=== PATIENT | female | born 1970 | race Caucasian/White ===

== ENCOUNTER 2018-12-13 13:57 | Inpatient (IN) | payer MEDICARE, MEDICAID ==
[~2018-12-13] VITALS: Ht 172.7 cm; Wt 145.1 kg
--- NOTE | ~2018-12-13 | EMS ---
[facility] [address] [address] EMS Patient Care Report Name: VANI GOLD V Room: [facility]#: [id number] Admission: 12/13/18 Attend Phys: Discharge: Date of : 66 Report #: [id number] THIS REPORT FOR: //name// Report Transmitted: 12/13/2018 14:04 EMS Care Summary [facility]ident [id number] @ 12/13/2018 12:44 Incident Location [address] [place] [address] Patient VANI GOLD Female, 48 Years 1970 Patient Address [address] [place] [address] Patient History TIA,Chronic Pain, Patient Allergies Phenergan,Oxycodone, Patient Medications Penicillin, Morphine, Nexium, Chief Complaint Right sided weakness Disposition Transported No Lights/[place] Dispatch Reason Stroke/CVA Transported To [facility] Narrative Dispatch: [facility] was dispatched to [address] [place] [address] for a patient with stroke like symptoms. [facility] responded from headquarters and arrived on scene without incident. [facility] [address] [place] [address] EMS Patient Care Report Name: VANI GOLD V Room: [facility]#: [id number] Admission: 12/13/18 Attend Phys: Discharge: Date of : 66 Report #: [id number] Chief Complaint: Upon arrival to the scene, the patient, (Vani Gold) was found seated upright in her chair. Vani was complaining that her right arm felt heavy and the right side of her face felt numb. Vani stated that it started around 0100 in the morning and didn't call because she's "stubborn." History of Present Illness: Vani advised that she has had TIAs before, however has never had a CVA. She stated that the symptoms she was experiencing this time were different than the ones she had last time. Vani stated that she took an aspirin earlier in the morning, and had not taken any of her other medications. She states that she has been eating normally, and has not had any recent changes in diet, weight, or overall health until she started the symptoms she was experiencing. Assessment: Primary Assessment - Vani had a patent airway, her respiratory effort was not labored and she had clear and equal bilateral breath sounds. Vani had strong radial pulses and her skin was pink, warm, and dry. 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 No other disability was noted. Secondary Assessment - See assessment section for further information. Reason for Ambulance Transport: Vani required ambulance transport due to the significant findings consistent with a stroke. Treatments: Assessment was performed. [place] Stroke Scale and MEND Exam were performed. Vital signs were obtained. 3-lead and 12-Lead EKG were performed showing a sinus tachycardia without elevation or ectopy. IV access was attempted and successful in the left antecubital space with a 20 gauge IV. Blood draw was performed and flushed with 10 mL normal saline. It was secured with a saline lock. Summary of Call: Vani was noted to have significant findings consistent with a stroke. Vani was transferred to the cot with excessive assistance, and was secured to the cot. She was taken to the ambulance and loaded without incident. Non-emergency transport to the hospital began. During transport, no changes in the patient's condition were noted. Report was called to the hospital. Upon arrival to the facility, Vani was unloaded and taken inside without incident. She was transferred to the hospital bed. Report was given to nursing staff, signatures were obtained, [place] [address] EMS Patient Care Report Name: VANI GOLD [id number] Admission: 12/13/18 Attend Phys: Discharge: Date of : 66 Report #: [id number] Initial Vitals @13:29R: 18,BP: 172/118,Pain: 0/10,GCS: 15,Glucose: 176,SpO2: 99,Revised Trauma: 12,3-Lead ECG: Sinus Tachycardia Assessments @12:55MENTAL:Person Oriented,Time Oriented,Event Oriented,Place Oriented,SKIN:HEENT:Head/Face: Other,Eyes: Left Pupil: 3-mm,Eyes: Right Pupil: 3-mm,LUNG SOUNDS:ABDOMEN:PELVIS//GI:EXTREMITIES:Right Arm: Abnormal Sensation,Right Arm: Weakness,Capillary Refill: Right Upper: < 2 Sec,PULSE:Radial: 2+ Normal,NEURO:Weakness Right-Sided,Slurred Speech,@12:55MENTAL:Event Oriented,Time Oriented,Place Oriented,Person Oriented,SKIN:HEENT:Head/Face: No Abnormalities,LUNG SOUNDS:General: No Abnormalities,Left Upper: No Abnormalities,Right Upper: No Abnormalities,Left Lower: No Abnormalities,Right Lower: No Abnormalities,ABDOMEN:General: No Abnormalities,Left Upper: No Abnormalities,Right Upper: No Abnormalities,Left Lower: No Abnormalities,Right Lower: No Abnormalities,PELVIS//GI:EXTREMITIES:Left Arm: No Abnormalities,Right Arm: No Abnormalities,Left Leg: No Abnormalities,Right Leg: No Abnormalities,PULSE:NEURO: Impression Stroke / CVA Procedures @12:48ALS AssessmentResponse: UnchangedSucceeded@13:49 cc (20 ga) Site: Antecubital-LeftResponse: UnchangedSucceeded@12:493-Lead ECGResponse: UnchangedSucceeded@12:4812-Lead ECGResponse: UnchangedSucceeded@13:00Normal Saline (.9% NaCl) 10cc (20 ga) Site: Antecubital-LeftResponse: UnchangedSucceeded Timeline 12:41,Call Received 12:44,Dispatched 12:44,En Route 12:48,ALS Assessment,Response: UnchangedSucceeded, 12:48,12-Lead ECG,Response: UnchangedSucceeded, 12:49,3-Lead ECG,Response: UnchangedSucceeded, 12:53,On Scene 12:55,At Patient 13:00,Normal Saline (.9% NaCl) 10cc 20 ga Site: Antecubital-Left,Response: UnchangedSucceeded, 13:11,Depart Scene 13:29,BP: 172/118 M,PULSE: ,RR: 18 R,SPO2: 99 Ox,ETCO2: ,B,PAIN: 0,GCS: 15, 13:49, cc 20 ga Site: Antecubital-Left,Response: UnchangedSucceeded, [facility] [address] [place] [address] EMS Patient Care Report Name: VANI GOLD V Room: [facility] Salomon#: [id number] Admission: 12/13/18 Attend Phys: Discharge: Date of : 66 Report #: [id number] 13:55,At Destination 14:57,Call Closed Disclaimer v1.1 Copyright 2019 [employer] This EMS Care Summary contains data elements from the applicable legal record (which may be displayed differently). It is designed to provide pertinent information for the following purposes: continuity of care, clinical quality, and state data reporting. The complete legal record is available to ED staff and administrators of the receiving hospital in [facility]'s Patient Tracker. All data is provided "as is."
[~2018-12-13 13:57] MED LIST: B12INJ IM; BACTRIM DS TAB1 EACH PO; DOXYCYCLINE 10100 MG PO; LEXAPRO20 MG PO; MS CONTIN15 MG PO; ZYVOX600 MG PO
[2018-12-13 13:59] VITALS: BP 148/88
[2018-12-13 14:00] VITALS: BP 193/107
[2018-12-13] MEDS ORDERED: AUGMENTIN 875-1 EACH PO (14:12)
[2018-12-13] MEDS ORDERED: ZOFRAN4 MG PO (14:13)
[2018-12-13] MEDS ORDERED: ASPIRIN EC325 MG PO (14:13)
[2018-12-13] MEDS ORDERED: NEXIUM40 M2 PO (14:13)
[2018-12-13 14:20] LABS: ABSOLUTE BASOPHILS 0.1 thou/uL (0.0-0.2); ABSOLUTE EOSINOPHILS 0.2 thou/uL (0.0-0.7); ABSOLUTE MONOCYTES 0.6 thou/uL (0.0-1.2); ABSOLUTE NEUTROPHILS 6.8 thou/uL (1.6-8.1); BASOPHILS 1.2 %; EOSINOPHILS 2.6 %; HEMATOCRIT 47.6 % (37.0-47.0); HEMOGLOBIN 16.2 gm/dL (12.0-15.0); LYMPHOCYTES 20.3 %; MCH 31.2 pg (26.0-34.0); MCV 91.9 fL (80.0-100.0); MONOCYTES 6.4 %; MPV 7.4 fl. (7.2-11.1); NUCLEATED RBCS 0 /100WBC; PLATELET COUNT* 384 thou/uL (150-400); POLYS 69.5 %; RBC 5.18 mil/uL (4.20-5.00); RDW-CV 13.3 % (10.5-14.5); WBC 9.7 thou/uL (4.0-11.0)
[2018-12-13 14:33] LABS: CALCIUM 9.9 mg/dL (8.5-10.1)
[2018-12-13 14:38] LABS: ALBUMIN 3.5 g/dL (3.4-5.0); TOTAL BILIRUBIN 0.2 mg/dL (<0.1-1.0); TOTAL PROTEIN 7.9 g/dL (6.4-8.2)
[2018-12-13 16:46] VITALS: BP 141/78
[2018-12-13 17:19] LABS: HEMOGLOBIN 15.2 gm/dL (12.0-15.0)
--- NOTE | 2018-12-13 18:36 | NUR ---
PT ADMITTED TO FLOOR, HAS C/O HEADACHE AT THIS TIME. PHYSICIAN NOTIFIED REGARDING NEED FOR PAIN MEDICATIONS AND HOME MEDICATIONS TO BE RESTARTED. NO CALL BACK RECIEVED AT THIS TIME. VSS AT THIS TIME. WILL PASS ON TO HVAC LEAD REGARDING NO PHYSICIAN CONTACT AT THIS TIME. WILL CONTINUE TO MONITOR AND ASSESS
[2018-12-13 20:00] VITALS: BP 147/68
[2018-12-14 00:31] VITALS: BP 133/69
[2018-12-14 04:00] VITALS: BP 141/80
--- NOTE | 2018-12-14 04:47 | NUR ---
ASSUMED CARE OF PT AFTER REPORT AT 1930. PT A&OX4. VSS. PHYSICAL ASSESSMENT COMPLETED AND CHARTED. PT ON RA. PT TRACING SR PVC ON TELE. PT UPSTANDBY TO BSC. PT COMPLAINED OF NAUSEA, VOMITING & EPIGASTIC PAIN-DR MENDOZA MADE AWARE WITH NEW ORDERS. NIH CHARTED. PT REFUSED TO BE TURN EVEN AFTER EDUCATION- PT ABLE TO MOVE ON BED BY HERSELF. PT ABLE TO SLEEP WELL ON BED. CALL LIGHT WITHIN REACH.
[2018-12-14 05:26] LABS: CHOLESTEROL 238 mg/dL (<200); HDL CHOLESTEROL 34 mg/dL (>40); LDL CHOLESTEROL 176 mg/dL (<100); TRIGLYCERIDE 144 mg/dL (<150); VLDL 29 mg/dL (<40)
[2018-12-14 05:39] LABS: SERUM ASSESSMENT Clear
[2018-12-14 08:00] VITALS: BP 131/74
--- NOTE | 2018-12-14 10:14 | NUR ---
Pt is A&O. Resides at home with her and son. Independent with ADLs, can complete limited IADLs, son and assist as needed. Pt uses a cane for mobility in the home and a power wc in the community. Hx of [facility]. No hx of SNF. Goal is home at ma. Therapy evals pending. Following
--- NOTE | 2018-12-14 11:17 | NUR ---
ASSUMED PT CARE AT 0730, FULL ASSESMENT DONE CHARTED. PT A/O X4, ANXIOUS AND TEARFUL AT TIMES. SHE C/O NAUSEA THIS AM, MEDS GIVEN PER APR. PT UP WITH ASSIST, FALL PRECAUIONS IN PLACE, NIH DONE, REFER TO CHARTING. VSS, SR ON THE MONTIOR. PT WANTS TO GO HOME TODAY. WILL CONTINUE TO MONITOR.
[2018-12-14 12:17] VITALS: BP 135/70
[2018-12-14 14:03] LABS: AMP/METHAMP Negative (Negative); BARBITURATES Negative (Negative); BENZODIAZEPINES Negative (Negative); COCAINE Negative (Negative); METHADONE Negative (Negative); OPIATES POSITIVE (Negative); PCP Negative (Negative); THC Negative (Negative)
[2018-12-14] MEDS ORDERED: ZOFRAN4 MG PO (16:01)
[2018-12-14] MEDS ORDERED: XANAX 0.5 MG0.5 M1 PO (16:01)
[2018-12-14] MEDS ORDERED: LIPITOR40 MG PO (16:01)
[2018-12-14 16:04] VITALS: BP 135/70
[2018-12-14 16:28] VITALS: BP 115/73
--- NOTE | 2018-12-14 17:59 | EKG ---
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: : 1970 Requested By: Jermain Douglas Order Number: [id number] MD: Wade Aldana Measurements Intervals [place] Rate: 104 P: 60 TX: 161 QRS: -4 QRSD: 108 T: -1 QT: 347 QTc: 457 Interpretive Statements Sinus tachycardia Low voltage, precordial leads Compared to ECG 10/22/2015 19:28:31 Low QRS voltage now present Electronically Signed On 12-14-2018 17:59:04 CDT by Wade Aldana [email or web address] <ELECTRONICALLY SIGNED> By: Wade Aldana MD, [facility] 12/14/18 0746 1427 1427 Wade Aldana MD, [facility] /EPI
--- NOTE | 2018-12-14 18:31 | NUR ---
RECEIVED DISCHARGE ORDERS FOR TODAY. PT AND GIVEN DISCHARGE INSTRUCTIONS, NEW SCRIPTS CALLED TO PHARMACY. PT AND VERBALIZED UNDERSTANDING. PT LEFT WITH ALL BELONGINGS AT APPROX 1800
== END 2018-12-14 18:12 | disposition home health service (06) | DRG 69 ==
LOC: M.ERS 13:57 → M.TBA-ER 15:44 → M.2W 15:44
PROVIDERS: Emergency Medicine Emergency Medical Services; Family Medicine; ADMIT Internal Medicine
DX: G45.9 Transient cerebral ischemic attack, unspecified (principal); Z68.42 Body mass index [BMI] 45.0-49.9, adult; R47.1 Dysarthria and anarthria; H53.8 Other visual disturbances; R53.1 Weakness; R29.703 NIHSS score 3; E78.5 Hyperlipidemia, unspecified; E66.01 Morbid (severe) obesity due to excess calories; F41.9 Anxiety disorder, unspecified; Z53.29 Procedure and treatment not carried out because of patient's decision for other reasons; F40.240 Claustrophobia; R20.0 Anesthesia of skin; M25.852 Other specified joint disorders, left hip; Z86.73 Personal history of transient ischemic attack (TIA), and cerebral infarction without residual deficits; Z90.49 Acquired absence of other specified parts of digestive tract; Z79.899 Other long term (current) drug therapy; Z79.82 Long term (current) use of aspirin; Z88.8 Allergy status to other drugs, medicaments and biological substances; Z91.048 Other nonmedicinal substance allergy status; Z71.6 Tobacco abuse counseling

== ENCOUNTER 2019-01-27 11:24 | Inpatient (IN) | payer MEDICARE, MEDICAID ==
[~2019-01-27] VITALS: Ht 170.2 cm; Wt 146.5 kg
[~2019-01-27 11:24] MED LIST changes: +ASPIRIN EC81 M1 PO; +AUGMENTIN 875-1 EACH PO; +LIPITOR40 MG PO; +NEXIUM40 M2 PO; +XANAX 0.5 MG0.5 M1 PO; +ZOFRAN4 MG PO
[2019-01-27 11:34] VITALS: BP 170/95
[2019-01-27] MEDS ORDERED: PENICILLIN VK500 MG PO (11:42)
[2019-01-27] MEDS ORDERED: LEXAPRO 10 MG T10 MG PO (11:43)
[2019-01-27 12:02] LABS: ABSOLUTE EOSINOPHILS 0.5 thou/uL (0.0-0.7); ABSOLUTE LYMPHOCYTES 2.2 thou/uL (0.8-5.3); ABSOLUTE MONOCYTES 0.5 thou/uL (0.0-1.2); BASOPHILS 0.2 %; EOSINOPHILS 5.2 %; HEMATOCRIT 45.4 % (37.0-47.0); HEMOGLOBIN 15.3 gm/dL (12.0-15.0); LYMPHOCYTES 23.9 %; MCH 31.3 pg (26.0-34.0); MCHC 33.8 g/dL (28.0-37.0); MCV 92.7 fL (80.0-100.0); MONOCYTES 5.3 %; MPV 7.6 fl. (7.2-11.1); NUCLEATED RBCS 0 /100WBC; PLATELET COUNT* 411 thou/uL (150-400); POLYS 65.4 %; RDW-CV 13.6 % (10.5-14.5); WBC 9.2 thou/uL (4.0-11.0)
[2019-01-27 12:14] LABS: PROTIME 10.1 Seconds (9.20-11.50)
[2019-01-27 12:16] LABS: ALBUMIN 3.6 g/dL (3.4-5.0); CALCIUM 9.4 mg/dL (8.5-10.1); CREATININE 0.8 mg/dL (0.6-1.3); POTASSIUM 4.1 mmol/L (3.5-5.1); TOTAL BILIRUBIN 0.3 mg/dL (<0.1-1.0)
[2019-01-27 14:32] VITALS: BP 136/89
--- NOTE | 2019-01-27 14:56 | EKG ---
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1970 Requested By: Jermain Douglas Order Number: [id number] MD: Wade Aldana Measurements Intervals [place] Rate: 93 P: 70 [place]: 160 QRS: 37 QRSD: 107 T: 31 QT: 363 QTc: 452 Interpretive Statements Sinus rhythm Abnormal R-wave progression, early transition Baseline wander in lead(s) II,aVR,aVF,V1,V2,V3,V4,V5,V6 Compared to ECG 12/13/2018 14:27:22 Sinus tachycardia no longer present Electronically Signed On 01-27-2019 14:56:26 CHIEF UNDERWRITER by Wade Aldana [email or web address] <ELECTRONICALLY SIGNED> By: Wade Aldana MD, FACC 01/27/19 1456 1138 1138 Wade Aldana MD, FACC /EPI
--- NOTE | 2019-01-27 16:23 | NUR ---
PATINET RESTING IN BED. UP WITH ASSIST X1 AND CANE. MINOR RIGHT SIDE WEAKNESS. PATINET AOX4. VITAL SIGNS STABLE. MRI HEAD WITH CONTRAST ORDERED. UA, ECHO, AND CAROTID US ORDERED. VITAL SIGNS STABLE. HOURLY ROUNDING COMPLETD FOR PATINET SAFETY.
[2019-01-27 20:00] VITALS: BP 120/75
[2019-01-28 00:38] VITALS: BP 115/53
--- NOTE | 2019-01-28 04:09 | NUR ---
PT ALERT ORIENTED. NIHSS 1. AMBULATES WITH CANE AND ASSIST OF ONE. TELEMETRY SHOWS SR. TYLENOL GIVEN HS FOR BILLS PAIN. WCTM.
[2019-01-28 04:57] VITALS: BP 115/70
[2019-01-28 07:55] VITALS: BP 121/61
[2019-01-28 12:26] VITALS: BP 126/59
--- NOTE | 2019-01-28 13:46 | NUR ---
Pt is A&O. Known to this CM from previous hospital stay. Pt uses a cane for mobility, but has a scooter for community distances and also a walker. Hx of [facility], as of last week. No hx of SNF. Goal is home at [place], Pt [place] not want HH at [place].
[2019-01-28 14:19] LABS: URINE BILIRUBIN NEGATIVE (Negative); URINE BLOOD 2+ (Negative); URINE CLARITY CLEAR; URINE COLOR YELLOW; URINE GLUCOSE-RANDOM NEGATIVE (Negative); URINE KETONES NEGATIVE (Negative); URINE NITRITE-REFLEX NEGATIVE (Negative); URINE PROTEIN NEGATIVE (Negative); URINE UROBILINOGEN 0.2 E.U./dl (0.2-1.0)
[2019-01-28 14:22] LABS: URINE LEUKOCYTES-REFLEX 2+ (Negative)
[2019-01-28] MEDS ORDERED: FOLIC ACID1 MG PO (14:24)
[2019-01-28] MEDS ORDERED: B-12 COMPL1000 MCG/1 SUBQ (14:28)
[2019-01-28 14:29] LABS: SQUAMOUS >10 Many /LPF (0-3)
[2019-01-28] MEDS ORDERED: VASCEPA1 GM PO (14:30)
[2019-01-28 14:31] LABS: URINE WBC-REFLEX 6-15 Few /HPF (0-5)
[2019-01-28 14:32] VITALS: BP 126/59
[2019-01-28 14:32] LABS: CASTS None Seen /LPF (None Seen); MUCUS 0-3 Light strn/LPF (None Seen); URINE RBC 3-10 Few /HPF (0-2)
[2019-01-28 14:33] LABS: CRYSTALS None Seen /LPF (None Seen)
--- NOTE | 2019-01-28 14:48 | 2DMMODE ---
[place] [address] 2 D/M-MODE ECHOCARDIOGRAM Name: RACHEL GOLD V Room: [address] IN [facility]#: [id number] Admission: 01/27/19 Attend Phys: Kenrick Ingram Discharge: Date of : 66 Date of Service: 01/28/19 1448 Report #: [id number] THIS REPORT FOR: //name// APPROVED REPORT Study performed: 01/28/2019 09:52:46 EXAM: Comprehensive 2D, Doppler, and color-flow Echocardiogram Patient Location: In-Patient Room #: [facility] Status: routine BSA: 2.40 HR: 64 bpm BP: 121/61 mmHg Rhythm: NSR Other Information Study Quality: Good Indications CVA/TIA Echo Enhancing Agent Indication: Rule out Shunt Agent(s) / Amount(s) Used: Agitated Saline 10 cc 2D Dimensions IVSd: 12.88 (7-11mm) LVOT Diam: 24.67 (18-24mm) LVDd: 55.15 mm PWd: 9.67 (7-11mm) Ascending Ao: 34.38 (22-36mm) LVDs: 32.48 (25-40mm) Aortic Root: 34.36 mm Volumes Left Atrial Volume (Systole) LA ESV Index: 27.40 mL/m2 Aortic Valve AoV Peak Tim.: 1.15 m/s AO Peak Gr.: 5.28 mmHg LVOT Max P.69 mmHg AO Mean Gr.: 3.00 mmHg LVOT Mean P.83 mmHg LVOT Max V: 0.65 m/s AO V2 VTI: 24.82 cm LVOT Mean V: 0.41 m/s VARUN (VTI): 2.90 cm2 LVOT V1 VTI: 15.05 [place] [address] 2 D/M-MODE ECHOCARDIOGRAM Name: RACHEL GOLD V Room: [address] IN [facility].#: [id number] Admission: 01/27/19 Attend Phys: Kenrick Ingram Discharge: Date of : 66 Date of Service: 01/28/19 1448 Report #: [id number] Mitral Valve E/A Ratio: 1.09 MV Decel. Time: 221.70 ms MV E Max Tim.: 0.74 m/s MV PHT: 64.29 ms MVA (PHT): 3.42 cm2 TDI E/Lateral E': 5.69 E/Medial E': 6.73 Medial E' Tim.: 0.11 m/s Lateral E' Tim.: 0.13 m/s Pulmonary Valve PV Peak Tim.: 0.62 m/s PV Peak Gr.: 1.55 mmHg Left Ventricle The left ventricle is normal size. There is normal LV segmental wall motion. There is normal left ventricular wall thickness. Left ventricular systolic function is normal. LVEF is 55-60%. The left ventricular diastolic function is normal. Right Ventricle The right ventricle is normal size. The right ventricular systolic function is normal. Atria The left atrium size is normal. Interatrial septum is intact without evidence of ASD or PFO. The right atrium size is normal. Aortic Valve The aortic valve is normal in structure. No aortic regurgitation is present. There is no aortic valvular stenosis. Mitral Valve The mitral valve is normal in structure. There is no mitral valve regurgitation noted. No evidence of mitral valve stenosis. Tricuspid Valve The tricuspid valve is normal in structure. Unable to assess PA pressure. Trace tricuspid regurgitation. Pulmonic Valve The pulmonary valve is normal in structure. There is no pulmonic valvular regurgitation[place] [address] 2 D/M-MODE ECHOCARDIOGRAM Name: RACHEL GOLD V Room: [address] IN [facility]#: [id number] Admission: 01/27/19 Attend Phys: Kenrick Ingram Discharge: Date of : 66 Date of Service: 01/28/19 1448 Report #: [id number] The aortic root is normal in size. IVC is normal in size and collapses >50% with inspiration. Pericardium There is no pericardial effusion. <Conclusion> The left ventricle is normal size. There is normal left ventricular wall thickness. Left ventricular systolic function is normal. LVEF is 55-60%. The left ventricular diastolic function is normal. Interatrial septum is intact without evidence of ASD or PFO. Trace tricuspid regurgitation. IVC is normal in size and collapses >50% with inspiration. <ELECTRONICALLY SIGNED> By: Pascual Gramajo MD, FACC 01/28/19 1448 1448 1448 Pascual Gramajo MD, FACC /INF
--- NOTE | 2019-01-28 15:06 | NUR ---
ORDER RECEIVED TO DISCHARGE PATIENT H OME TO SELF CARE. MED REC, MEDICATION EDUCATION, STROKE EDUCATION AND NEED FOR FOLLOW UP WITH NEURO AND PRIMARY CARE PROVIDER COVERED AND STATED UNDERSTOOD BY PATIENT. IV AND TELEMRTRY PACK REOMVED. DISCHARGE TIME OF 15:07
== END 2019-01-28 14:39 | disposition home or self-care (01) | DRG 641 ==
LOC: M.ERS 11:24 → M.2W 13:15 → M.TBA-ER 13:15 → M.2W 15:07
PROVIDERS: Emergency Medicine Emergency Medical Services; ADMIT Internal Medicine
DX: E53.8 Deficiency of other specified B group vitamins (principal); F11.20 Opioid dependence, uncomplicated; F17.210 Nicotine dependence, cigarettes, uncomplicated; I10 Essential (primary) hypertension; E78.5 Hyperlipidemia, unspecified; E11.9 Type 2 diabetes mellitus without complications; Z90.49 Acquired absence of other specified parts of digestive tract; Z86.73 Personal history of transient ischemic attack (TIA), and cerebral infarction without residual deficits; Z79.82 Long term (current) use of aspirin; Z79.899 Other long term (current) drug therapy; Z88.1 Allergy status to other antibiotic agents; Z91.09 Other allergy status, other than to drugs and biological substances

== ENCOUNTER 2021-03-25 03:07 | Emergency (ER) | payer MEDICARE, MEDICAID ==
[~2021-03-25] VITALS: Ht 170.2 cm; Wt 131.5 kg
--- NOTE | ~2021-03-25 | EMS ---
[place] [address] EMS Patient Care Report Name: RACHEL GOLD [id number] Admission: 03/25/21 Attend Phys: Discharge: 03/25/21 Date of : [birth year] Report #: [id number] THIS REPORT FOR: //name// Report Transmitted: 03/28/2021 13:40 EMS Care Summary [facility] [id number] @ 03/25/2021 01:36 [place] [address] Patient RACHEL GOLD Female, 51 Years 1970 [place] [address] Patient History Hypertension (HTN),Stroke/CVA,Anxiety,Chronic Pain,Kidney Stone, Patient Allergies Phenergan,Vicodin,Oxycodone, Patient Medications Lexapro, Ventolin, Penicillin, Zofran, Chief Complaint I've had chest pain for hours Disposition Transported No Lights/[place] Dispatch Reason Chest Pain (Non-Traumatic) Transported To [facility] Narrative Med 1 requested to [place] by first responders on the scene requesting an ambulance. Med 1 copied the call and began our response to the scene. We arrived on scene without incident. We were met at the ambulance by Aston Malhotra who advised us the patient is family to them and requested a vitals check. The [address] [address] EMS Patient Care Report Name: RACHEL GOLD V Room: [facility] Salomon#: [id number] Admission: 03/25/21 Attend Phys: Discharge: 03/25/21 Date of : 66 Report #: [id number] patient complained of chest pain and wanted to go by ambulance instead of POV. Inside sitting up right on the couch we located a female patient who appeared to be in no distress. She's alert with a GCS of 15. Patient advised she was sitting down at 2000 when she began having chest pain in the center of her chest in which was heavy. She took 325 ASA with no change in pain. She then tried to eat dinner and rest some which didn't help. The pain subsided on its own with no further interventions. She then began having an aching pain in the center of her chest around 2200. She was not able to get comfortable enough to sleep. She contacted her son who is on [employer] to come take her vitals. She requested her son to have an ambulance take her to the ER for evaluation. Vitals were obtained at her side. 12 lead ECG obtained. Patient was able to stand then to turn and sit on the cot. She was covered and secured. She was taken to the ambulance and placed inside. Vitals were monitored. Repeat ECG obtained. IV access obtained with zofran given for nausea. Patient requested to go to [place] for evaluation. We began our non emergent transport to the ER. Patient promptly fell asleep on the cot as we began our transport. She appeared to be in no distress as she slept on the cot. Patient denied that she takes any medication to assist her in sleeping at night. She advised that she advised due to the time of night is why she couldn't stay awake. Vitals were monitored. No acute changes were with the patients condition. Report was called in to the ER via [employer] radio. She advised that her pain had subsided again. Her nausea improved with the zofran. Upon arrival to the ER patient was taken inside and to the ER bed where she was moved. Report was given to the nurse taking over care. Signatures were obtained and care was transferred. Initial Vitals @02:10P: 87,SpO2: 97, @02:40P: 81,BP: 104/66,SpO2: 93, @02:45P: 79,SpO2: 96, @02:54P: 80,BP: 131/96,SpO2: 95, @02:28P: 81,BP: 73/46,SpO2: 94, @02:03P: 87,BP: 151/54,SpO2: 96, @02:25P: 88,BP: 71/46,SpO2: 92, @02:20P: 89,SpO2: 96, @02:15P: 90,BP: 66/46,SpO2: 96, @02:35P: 85,SpO2: 94, @03:00P: 78,SpO2: 94, @02:23P: 90,R: 18,BP: 118/70,Pain: 4/10,GCS: 15,Glucose: 110,SpO2: 99,Revised Trauma: 12,ND Suspected: false @02:46P: 76,R: 18,BP: 106/60,Pain: 4/10,GCS: 15,SpO2: 99,Revised Trauma: 12, @02:56P: 80,R: 18,BP: 130/90,Pain: 0/10,GCS: 15,SpO2: 99,Revised Trauma: 12, [address] [address] EMS Patient Care Report Name: RACHEL GOLD V Room: [facility]#: [id number] Admission: 03/25/21 Attend Phys: Discharge: 03/25/21 Date of : 66 Report #: [id number] Assessments @02:28MENTAL:Person Oriented,Event Oriented,Time Oriented,Place Oriented,SKIN:HEENT:LUNG SOUNDS:General: Nausea,ABDOMEN:General: Nausea,PELVIS//GI:EXTREMITIES:Right Arm: Weakness,PULSE:NEURO:@02:46MENTAL:Place Oriented,Person Oriented,Time Oriented,Event Oriented,SKIN:HEENT:LUNG SOUNDS:ABDOMEN:PELVIS//GI:EXTREMITIES:Right Arm: Weakness,PULSE:NEURO: Impression Chest Pain / Discomfort Procedures @02:24 ALS Assessment Response: UnchangedSucceeded @02:41 IV Therapy - Saline Lock 10cc (20 ga) Site: Antecubital-Right Response: UnchangedSucceeded @02:42 Zofran - 4 Milligrams (mg) - Intravenous (IV) Response: Improved @02:03 12-Lead ECG @02:54 12-Lead ECG Timeline 01:36,Call Received 01:36,Dispatched 01:38,En Route 01:52,On Scene 01:53,At Patient 02:03,12-Lead ECG, 02:03,BP: 151/54 M,PULSE: 87,RR: R,SPO2: 96 Ox,ETCO2: ,BG: ,PAIN: ,GCS: , 02:10,BP: / M,PULSE: 87,RR: R,SPO2: 97 Ox,ETCO2: ,BG: ,PAIN: ,GCS: , 02:11,Depart Scene 02:15,BP: 66/46 M,PULSE: 90,RR: R,SPO2: 96 Ox,ETCO2: ,BG: ,PAIN: ,GCS: , 02:20,BP: / M,PULSE: 89,RR: R,SPO2: 96 Ox,ETCO2: ,BG: ,PAIN: ,GCS: , 02:23,BP: 118/70 M,PULSE: 90,RR: 18 R,SPO2: 99 Ox,ETCO2: ,B,PAIN: 4,GCS: 15, 02:24,ALS Assessment,Response: UnchangedSucceeded, 02:25,BP: 71/46 M,PULSE: 88,RR: R,SPO2: 92 Ox,ETCO2: ,BG: ,PAIN: ,GCS: , 02:28,BP: 73/46 M,PULSE: 81,RR: R,SPO2: 94 Ox,ETCO2: ,BG: ,PAIN: ,GCS: , 02:35,BP: / M,PULSE: 85,RR: R,SPO2: 94 Ox,ETCO2: ,BG: ,PAIN: ,GCS: , 02:40,BP: 104/66 M,PULSE: 81,RR: R,SPO2: 93 Ox,ETCO2: ,BG: ,PAIN: ,GCS: , 02:41,IV Therapy - Saline Lock 10cc 20 ga Site: Antecubital-Right,Response: UnchangedSucceeded, 02:42,Zofran - 4 Milligrams (mg) - Intravenous (IV),Response: Improved 02:45,BP: / M,PULSE: 79,RR: R,SPO2: 96 Ox,ETCO2: ,BG: ,PAIN: ,GCS: , 02:46,BP: 106/60 M,PULSE: 76,RR: 18 R,SPO2: 99 Ox,ETCO2: ,BG: ,PAIN: 4,GCS: 15, 02:54,12-Lead ECG, [address] [address] EMS Patient Care Report Name: RACHEL GOLD V Room: [facility]#: [id number] Admission: 03/25/21 Attend Phys: Discharge: 03/25/21 Date of : 66 Report #: [id number] 02:54,BP: 131/96 M,PULSE: 80,RR: R,SPO2: 95 Ox,ETCO2: ,BG: ,PAIN: ,GCS: , 02:56,BP: 130/90 M,PULSE: 80,RR: 18 R,SPO2: 99 Ox,ETCO2: ,BG: ,PAIN: 0,GCS: 15, 03:00,BP: / M,PULSE: 78,RR: R,SPO2: 94 Ox,ETCO2: ,BG: ,PAIN: ,GCS: , 03:01,At Destination 03:58,Call Closed Disclaimer v1.1 Copyright 2021 [employer] This EMS Care Summary contains data elements from the applicable legal record (which may be displayed differently). It is designed to provide pertinent information for the following purposes: continuity of care, clinical quality, and state data reporting. The complete legal record is available to ED staff and administrators of the receiving hospital in [employer] Patient Tracker. All data is provided "as is."
[~2021-03-25 03:07] MED LIST changes: +B-12 COMPL1000 MCG/1 SUBQ; +FOLIC ACID1 MG PO; +LEXAPRO 10 MG T10 MG PO; +PENICILLIN VK500 MG PO; +VASCEPA1 GM PO
[2021-03-25] MEDS ORDERED: VENTOLIN HFA INH8 GM INH (03:12)
[2021-03-25] MEDS ORDERED: ASA81BEC PO (03:12)
[2021-03-25] MEDS ORDERED: PENICILLIN VK500 MG PO (03:13)
[2021-03-25] MEDS ORDERED: TRAMADOL 50 MG50 MG PO (03:14)
[2021-03-25 03:51] LABS: ABSOLUTE BASOPHILS 0.1 thou/uL (0.0-0.2); ABSOLUTE EOSINOPHILS 0.3 thou/uL (0.0-0.7); ABSOLUTE MONOCYTES 0.6 thou/uL (0.0-1.2); ABSOLUTE NEUTROPHILS 6.6 thou/uL (1.6-8.1); BASOPHILS 1.2 %; EOSINOPHILS 2.9 %; HEMATOCRIT 45.1 % (37.0-47.0); HEMOGLOBIN 15.1 gm/dL (12.0-15.0); LYMPHOCYTES 20.9 %; MCH 31.7 pg (26.0-34.0); MCHC 33.5 g/dL (28.0-37.0); MCV 94.7 fL (80.0-100.0); MONOCYTES 6.4 %; MPV 7.3 fl. (7.2-11.1); NUCLEATED RBCS 0 /100WBC; PLATELET COUNT* 362 thou/uL (150-400); POLYS 68.6 %; RBC 4.77 mil/uL (4.20-5.00); RDW-CV 13.5 % (10.5-14.5); WBC 9.6 thou/uL (4.0-11.0)
[2021-03-25 03:57] LABS: URINE BILIRUBIN NEGATIVE (Negative); URINE BLOOD TRACE (Negative); URINE CLARITY CLEAR; URINE COLOR STRAW; URINE GLUCOSE-RANDOM NEGATIVE (Negative); URINE KETONES NEGATIVE (Negative); URINE LEUKOCYTES-REFLEX NEGATIVE (Negative); URINE NITRITE-REFLEX NEGATIVE (Negative); URINE PROTEIN NEGATIVE (Negative); URINE SPECIFIC GRAVITY <= 1.005 (1.005-1.030); URINE UROBILINOGEN 0.2 E.U./dl (0.2-1.0)
[2021-03-25 04:05] LABS: AMP/METHAMP Negative (Negative); BARBITURATES Negative (Negative); BENZODIAZEPINES Negative (Negative); COCAINE Negative (Negative); METHADONE Negative (Negative); OPIATES Negative (Negative); PCP Negative (Negative); THC Negative (Negative)
[2021-03-25 04:08] LABS: CALCIUM 8.9 mg/dL (8.5-10.1); CREATININE 0.8 mg/dL (0.6-1.3); POTASSIUM 4.2 mmol/L (3.5-5.1)
[2021-03-25 04:13] LABS: ALBUMIN 3.3 g/dL (3.4-5.0); TOTAL BILIRUBIN 0.3 mg/dL (<0.1-1.0); TOTAL PROTEIN 7.4 g/dL (6.4-8.2)
[2021-03-25] MEDS ORDERED: CARAFATE1 GM PO (06:14)
[2021-03-25] MEDS ORDERED: LEVOFLOXACIN750 MG PO (06:14)
[2021-03-25 06:45] VITALS: BP 144/74
--- NOTE | 2021-03-25 08:17 | EKG ---
[place] [address] ELECTROCARDIOGRAM REPORT Name: RACHEL GOLD [facility] [id number] Admission: 03/25/21 Attend Phys: Discharge: 03/25/21 Date of : 66 Date of Service: 03/25/21309 Report #: [id number] THIS REPORT FOR: //name// [facility] ED Test Date: 2021-03-25 Test Time: 03:10:17 Pat Name: RACHEL GOLD Department: Room: Gender: Credit Representative: [place] : 1970 Requested By: Rody Tong Order Number: [id number] MD: Pascual Gramajo Measurements Intervals [place] Rate: 69 P: 35 CT: 162 QRS: -6 QRSD: 116 T: 11 QT: 407 QTc: 436 Interpretive Statements Sinus rhythm Low voltage, limb leads Compared to ECG 01/27/2019 11:38:36 Intraventricular conduction delay now present Electronically Signed On 03-25-2021 8:17:40 [employer]OUN[employer]KEE[employer] by Pascual Gramajo [email or web address] <ELECTRONICALLY SIGNED> By: Pascual Gramajo MD, [facility] 03/25/21 0817 Pascual Gramajo MD, [facility] /EPI
== END 2021-03-25 06:45 | disposition home or self-care (01) ==
LOC: M.ERS 03:07
PROVIDERS: Personal Emergency Response Attendant
DX: U07.1 COVID-19 (principal); J12.82 Pneumonia due to coronavirus disease 2019; R07.89 Other chest pain; F41.9 Anxiety disorder, unspecified; F17.210 Nicotine dependence, cigarettes, uncomplicated; Z90.49 Acquired absence of other specified parts of digestive tract; Z79.899 Other long term (current) drug therapy; Z88.6 Allergy status to analgesic agent; Z88.5 Allergy status to narcotic agent